=== PATIENT | female | born 1950 ===

== ENCOUNTER 2021-03-30 11:26 | Inpatient (IN) | payer MEDICARE ==
[2021-03-30] MEDS ORDERED: hydrALAZINE HCL 20 MG/ML 1 ML VIAL IVP STA (11:49)
[2021-03-30] MEDS ORDERED: ONDANSETRON 4 MG/2 ML VIAL IVP STA (11:49)
[2021-03-30] MEDS ORDERED: HYDROmorphone 0.5 MG/0.5 ML SYRINGE IVP STA (11:49)
--- NOTE | 2021-03-30 11:52 | ED ---
General Adult HPI - General Chief complaint: Back Pain/Injury Stated complaint: abd & back pain Time Seen by Provider: 03/30/21 11:30 Source: patient, historical interpreter, RN notes reviewed, old records reviewed Mode of arrival: ambulatory Limitations: language barrier - History of Present Illness Initial comments: This is a 71-year-old female who does not speaking verses son is interpreting. Patient is brought in today because she started having severe back pain and severe abdominal pain early this morning. Son states it's gotten progressively worse. Patient is very nauseated has vomited. Patient states it was a little back pain yesterday but nothing compared to today's back pain. Patient denies chest pain or palpitation. Patient denies shortness of breath or difficulty breathing. Patient denies any headache patient denies numbness weakness. Patient states she has a history of a little bit of high blood pressure. Patient denies any diabetes or heart disease. Patient denies any injury or trauma. Patient denies any recent fever chills. - Related Data Home Medications Medication Instructions Recorded Confirmed Famotidine [Pepcid] 20 mg PO DAILY 03/30/21 03/30/21 Fluticasone Nasal [place] [Flonase 1 spray EA NOSTRIL DAILY 03/30/21 03/30/21 Nasal [place]] Montelukast [Singulair] 10 mg PO HS 03/30/21 03/30/21 Ondansetron [Zofran] 4 mg PO Q12HR PRN 03/30/21 03/30/21 methylPREDNISolone [Medrol Dose See Taper PO DAILY 03/30/21 03/30/21 Pack] Allergies Allergy/AdvReac Type Severity Reaction Status Date / Time No Known Allergies Allergy Verified 03/30/21 13:21 Review of Systems ROS Statement: Those systems with pertinent positive or pertinent negative responses have been documented in the HPI. ROS Other: All systems not noted in ROS Statement are negative. Past Medical History Past Medical History: No Reported History History of Any Multi-Drug Resistant Organisms: None Reported Additional Past Surgical History / Comment(s): eye surgery Past Psychological History: No Psychological Hx Reported Smoking Status: Never smoker Past Alcohol Use History: None Reported Past Drug Use History: None Reported General Exam - General Exam Comments Initial Comments: GENERAL: Patient is well-developed and well-nourished. Patient is nontoxic and well- hydrated and is in moderate distress. ENT: Neck is soft and supple. No significant lymphadenopathy is noted. Oropharynx is clear. Moist mucous membranes. Neck has full range of motion without eliciting any pain. EYES: The sclera were anicteric and conjunctiva were pink and moist. Extraocular movements were intact and pupils were equal round and reactive to light. E yelids were unremarkable. PULMONARY: Unlabored respirations. Good breath sounds bilaterally. No audible rales rhonchi or wheezing was noted. CARDIOVASCULAR: There is a regular rate and rhythm without any murmurs gallops or rubs. ABDOMEN: Diffuse tenderness no point tenderness no rebound or guarding SKIN: Skin is clear with no lesions or rashes and otherwise unremarkable. NEUROLOGIC: Patient is alert and oriented x3. Cranial nerves II through XII are grossly intact. Motor and sensory are also intact. Normal speech, volume and content. Symmetrical smile. MUSCULOSKELETAL: Normal extremities with adequate strength and full range of motion. LYMPHATICS: No significant lymphadenopathy is noted PSYCHIATRIC: Normal psychiatric evaluation. Limitations: language barrier Course Vital Signs 03/30/21 03/30/21 03/30/21 11:27 11:51 12:12 Temperature 97.8 F Pulse Rate 71 74 74 Respiratory 18 18 18 Rate Blood Pressure 196/129 204/113 168/90 O2 Sat by Pulse 97 97 97 Oximetry 03/30/21 12:43 Temperature Pulse Rate 78 Respiratory 18 Rate Blood Pressure 148/68 O2 Sat by Pulse 97 Oximetry Medical Decision Making - Medical Decision Making EKG shows normal sinus rhythm at 70 bpm [place] interval 170 QRS is 82 QT interval 42 QTC is 434. Patient's EKG shows no ST segment elevation or depression. CT of the abdomen pelvis show no acute abnormality. Patient's blood pressure was extremely elevated when she came in and gave her 20 of hydralazine about it down nicely. I went back into reevaluate the patient after she had 0.5 of Dilaudid she was feeling much better but still a little nauseated still slight abdominal and slight back pain. I spoke with Dr. Pimentel he agreed to admit the patient admitted the patient wrote admitting orders. I consult to Dr. Jaime - Lab Data Result diagrams: 03/30/21 11:51 03/30/21 12:30 Lab Results 03/30/21 03/30/21 03/30/21 Range/Units 11:51 11:51 11:51 WBC 17.6 H (3.8-10.6) k/uL RBC 4.96 (3.80-5.40) m/uL Hgb 15.3 (11.4-16.0) gm/dL Hct 43.6 (34.0-46.0) % MCV 87.9 (80.0-100.0) fL MCH 30.9 (25.0-35.0) pg MCHC 35.2 (31.0-37.0) g/dL RDW 12.8 (11.5-15.5) % Plt Count 245 (150-450) k/uL MPV 9.6 Neutrophils % 73 % Lymphocytes % 20 % Monocytes % 5 % Eosinophils % 1 % Basophils % 0 % Neutrophils # 12.9 H (1.3-7.7) k/uL Lymphocytes # 3.4 (1.0-4.8) k/uL Monocytes # 0.9 (0-1.0) k/uL Eosinophils # 0.1 (0-0.7) k/uL Basophils # 0.1 (0-0.2) k/uL PT 10.6 (9.0-12.0) sec INR 1.0 (<1.2) APTT 22.4 (22.0-30.0) sec Sodium (137-145) mmol/L Potassium (3.5-5.1) mmol/L Chloride (98-107) mmol/L Carbon Dioxide (22-30) mmol/L Anion Gap mmol/L BUN (7-17) mg/dL Creatinine (0.52-1.04) mg/dL Est GFR (CKD-EPI)AfAm (>60 ml/min/1.73 sqM) Est GFR (CKD-EPI)NonAf (>60 ml/min/1.73 sqM) Glucose (74-99) mg/dL Lactic Ac Sepsis Rflx Plasma Lactic Acid Juan Antonio (0.7-2.0) mmol/L Calcium (8.4-10.2) mg/dL Total Bilirubin (0.2-1.3) mg/dL AST (14-36) U/L ALT (4-34) U/L Alkaline Phosphatase (38-126) U/L Troponin I (0.000-0.034) ng/mL Total Protein (6.3-8.2) g/dL Albumin (3.5-5.0) g/dL Amylase (30-110) U/L Lipase (23-300) U/L Urine Color Light Yellow Urine Appearance Clear (Clear) Urine pH 8.0 (5.0-8.0) Ur Specific [place] 1.050 H (1.001-1.035) Urine Protein Negative (Negative) Urine Glucose (UA) Negative (Negative) Urine Ketones Negative (Negative) Urine Blood Negative (Negative) Urine Nitrite Negative (Negative) Urine Bilirubin Negative (Negative) Urine Urobilinogen <2.0 (<2.0) mg/dL Ur Leukocyte Esterase Small H (Negative) Urine RBC 3 (0-5) /hpf Ur Squamous Epith Cells <1 (0-4) /hpf Urine Bacteria Rare H (None) /hpf 03/30/21 03/30/21 03/30/21 Range/Units 11:51 12:21 12:30 WBC (3.8-10.6) k/uL RBC (3.80-5.40) m/uL Hgb (11.4-16.0) gm/dL Hct (34.0-46.0) % MCV (80.0-100.0) fL MCH (25.0-35.0) pg MCHC (31.0-37.0) g/dL RDW (11.5-15.5) % Plt Count (150-450) k/uL MPV Neutrophils % % Lymphocytes % % Monocytes % % Eosinophils % % Basophils % % Neutrophils # (1.3-7.7) k/uL Lymphocytes # (1.0-4.8) k/uL Monocytes # (0-1.0) k/uL Eosinophils # (0-0.7) k/uL Basophils # (0-0.2) k/uL PT (9.0-12.0) sec INR (<1.2) APTT (22.0-30.0) sec Sodium 128 L (137-145) mmol/L Potassium 3.5 (3.5-5.1) mmol/L Chloride 95 L (98-107) mmol/L Carbon Dioxide 23 (22-30) mmol/L Anion Gap 10 mmol/L BUN 20 H (7-17) mg/dL Creatinine 0.53 (0.52-1.04) mg/dL Est GFR (CKD-EPI)AfAm >90 (>60 ml/min/1.73 sqM) Est GFR (CKD-EPI)NonAf >90 (>60 ml/min/1.73 sqM) Glucose 120 H (74-99) mg/dL Lactic Ac Sepsis Rflx Y Plasma Lactic Acid Juan [place] 2.5 H* (0.7-2.0) mmol/L Calcium 8.5 (8.4-10.2) mg/dL Total Bilirubin 0.8 (0.2-1.3) mg/dL AST 29 (14-36) U/L ALT 28 (4-34) U/L Alkaline Phosphatase 75 (38-126) U/L Troponin I (0.000-0.034) ng/mL Total Protein 6.3 (6.3-8.2) g/dL Albumin 3.4 L (3.5-5.0) g/dL Amylase 37 (30-110) U/L Lipase 47 (23-300) U/L Urine Color Urine Appearance (Clear) Urine pH (5.0-8.0) Ur Specific [place] (1.001-1.035) Urine Protein (Negative) Urine Glucose (UA) (Negative) Urine Ketones (Negative) Urine Blood (Negative) Urine Nitrite (Negative) Urine Bilirubin (Negative) Urine Urobilinogen (<2.0) mg/dL Ur Leukocyte Esterase (Negative) Urine RBC (0-5) /hpf Ur Squamous Epith Cells (0-4) /hpf Urine Bacteria (None) /hpf 03/30/21 Range/Units 12:30 WBC (3.8-10.6) k/uL RBC (3.80-5.40) m/uL Hgb (11.4-16.0) gm/dL Hct (34.0-46.0) % MCV (80.0-100.0) fL MCH (25.0-35.0) pg MCHC (31.0-37.0) g/dL RDW (11.5-15.5) % Plt Count (150-450) k/uL MPV Neutrophils % % Lymphocytes % % Monocytes % % Eosinophils % % Basophils % % Neutrophils # (1.3-7.7) k/uL Lymphocytes # (1.0-4.8) k/uL Monocytes # (0-1.0) k/uL Eosinophils # (0-0.7) k/uL Basophils # (0-0.2) k/uL PT (9.0-12.0) sec INR (<1.2) APTT (22.0-30.0) sec Sodium (137-145) mmol/L Potassium (3.5-5.1) mmol/L Chloride (98-107) mmol/L Carbon Dioxide (22-30) mmol/L Anion Gap mmol/L BUN (7-17) mg/dL Creatinine (0.52-1.04) mg/dL Est GFR (CKD-EPI)AfAm (>60 ml/min/1.73 sqM) Est GFR (CKD-EPI)NonAf (>60 ml/min/1.73 sqM) Glucose (74-99) mg/dL Lactic Ac Sepsis Rflx Plasma Lactic Acid Juan [place] (0.7-2.0) mmol/L Calcium (8.4-10.2) mg/dL Total Bilirubin (0.2-1.3) mg/dL AST (14-36) U/L ALT (4-34) U/L Alkaline Phosphatase (38-126) U/L Troponin I <0.012 (0.000-0.034) ng/mL Total Protein (6.3-8.2) g/dL Albumin (3.5-5.0) g/dL Amylase (30-110) U/L Lipase (23-300) U/L Urine Color Urine Appearance (Clear) Urine pH (5.0-8.0) Ur Specific [place] (1.001-1.035) Urine Protein (Negative) Urine Glucose (UA) (Negative) Urine Ketones (Negative) Urine Blood (Negative) Urine Nitrite (Negative) Urine Bilirubin (Negative) Urine Urobilinogen (<2.0) mg/dL Ur Leukocyte Esterase (Negative) Urine RBC (0-5) /hpf Ur Squamous Epith Cells (0-4) /hpf Urine Bacteria (None) /hpf Disposition Clinical Impression: Hypertensive urgency, Abdominal pain, Back pain Disposition: ADMITTED IP TO THIS HOSP Referrals: Eleazar Huynh MD [Primary Care Provider] - 1-2 days Time of Disposition: 14:38
[2021-03-30 11:59] LABS: Basophils # (A) 0.1 k/uL (0-0.2); Basophils % (A) 0 %; Eosinophils # (A) 0.1 k/uL (0-0.7); Eosinophils % (A) 1 %; HCT 43.6 % (34.0-46.0); HGB 15.3 gm/dL (11.4-16.0); Lymphocytes # (A) 3.4 k/uL (1.0-4.8); Lymphocytes % (A) 20 %; MCH 30.9 pg (25.0-35.0); MCHC 35.2 g/dL (31.0-37.0); MCV 87.9 fL (80.0-100.0); Mean Platelet Volume 9.6; Monocytes # (A) 0.9 k/uL (0-1.0); Monocytes % (A) 5 %; Neutrophils # (A) 12.9 k/uL (1.3-7.7); Neutrophils % (A) 73 %; Platelet Count 245 k/uL (150-450); RBC 4.96 m/uL (3.80-5.40); RDW 12.8 % (11.5-15.5); WBC 17.6 k/uL (3.8-10.6)
[2021-03-30 12:55] LABS: ALT 28 U/L (4-34); AST 29 U/L (14-36); African American GFR (CKD) >90 (>60 ml/min/1.73 sqM); Albumin 3.4 g/dL (3.5-5.0); Alkaline Phosphatase 75 U/L (38-126); Amylase 37 U/L (30-110); Anion Gap 10 mmol/L; Blood Urea Nitrogen 20 mg/dL (7-17); Calcium 8.5 mg/dL (8.4-10.2); Carbon Dioxide 23 mmol/L (22-30); Chloride 95 mmol/L (98-107); Glucose 120 mg/dL (74-99); Lipase 47 U/L (23-300); Non-African American GFR(CKD) >90 (>60 ml/min/1.73 sqM); Potassium 3.5 mmol/L (3.5-5.1); Sodium 128 mmol/L (137-145); Total Bilirubin 0.8 mg/dL (0.2-1.3); Total Protein 6.3 g/dL (6.3-8.2)
--- NOTE | 2021-03-30 12:57 | CT ---
EXAMINATION TYPE: CT angio abdomen pelvis DATE OF EXAM: 03/30/2021 COMPARISON: None INDICATION: generalized abdominal pain, DLP: 1657.4 mGycm, Automated exposure control for dose reduction was used. CONTRAST: 100 mL of Isovue 370. Study performed without Oral Contrast TECHNIQUE: Axial images were obtained from above the diaphragm to the pubic rami in the axial plane a t 5 mm thick sections. Reconstructed images are reviewed on the computer in the coronal plane. FINDINGS: Limited CT sections are obtained the lung bases. The lung bases are clear. Small hiatal hernia is p resent. CT ABDOMEN: Liver: There is moderate fatty infiltration of liver. No discrete masses or cysts are evident. Spleen: Normal Pancreas: Normal Adrenal glands: The adrenal glands are normal. Gallbladder: Distended Kidneys: No masses are evident. No hydronephrosis is present. No cysts are present. Delayed images were obtained through the kidneys, which remain unremarkable. Aorta: Normal no aneurysmal dilatation is evident. No dissection is evident. Iliac vessels are patent . Common femoral proximal superficial and profunda femoris vessels are patent. Inferior vena cava: Normal. CT PELVIS: Loops of bowel within the abdomen and pelvis are normal. This study is performed without oral con trast limiting evaluation. Appendix: Not identified. No dilated tubular structures or inflammatory changes evident Urinary bladder: Normal. Genitourinary structures: Uterus is not identified. There may be 1.1 cm cyst on the right lateral res idual, series 601 image 90 Osseous structures: No suspicious lytic or sclerotic lesions. IMPRESSIONS: 1. There is a hypodense 1.1 cm structure in the right adnexal region may be a cyst on the residual o vary. Consider follow-up with ultrasound. 2. Abdominal aorta appears normal without aneurysmal dilatation or dissection.
[2021-03-30 13:12] LABS: Partial Thromboplastin Time 22.4 sec (22.0-30.0); Prothrombin Time 10.6 sec (9.0-12.0)
[2021-03-30 13:48] LABS: Appearance,Urine Clear (Clear); Bacteria,Urine Rare /hpf; Bilirubin,Urine Negative (Negative); Blood,Urine Negative (Negative); Color,Urine Light Yellow; Glucose,Urine (UA) Negative (Negative); Ketones,Urine Negative (Negative); Leukocyte Esterase,Urine Small (Negative); Nitrite,Urine Negative (Negative); Protein,Urine Negative (Negative); RBC,Urine 3 /hpf (0-5); Squamous Epithelial Cell,Urine <1 /hpf (0-4); Urobilinogen,Urine <2.0 mg/dL (<2.0)
--- NOTE | 2021-03-30 14:23 | XR ---
EXAMINATION TYPE: XR chest 2V DATE OF EXAM: 03/30/2021 COMPARISON: NONE HISTORY: LIBERTAD and vomiting. TECHNIQUE: Frontal and lateral views of the chest are obtained. FINDINGS: There is no suspicious focal air space opacity, pleural effusion, or pneumothorax seen. T he cardiac silhouette size is within normal limits. The osseous structures are demineralized. IMPRESSION: No acute process.
[2021-03-30] MEDS ORDERED: SODIUM CHLORIDE 0.9% 1,000 ML IV ONE (14:39)
[2021-03-30] MEDS: ONDANSETRON 4 MG/2 ML VIAL IVP PRN ×2 (14:55→23:16)
[2021-03-30] MEDS: HYDROmorphone 0.5 MG/0.5 ML SYRINGE IVP PRN (17:18)
[2021-03-30] MEDS: PANTOPRAZOLE 40 MG/10 ML VIAL IVP SCH (17:18)
--- NOTE | 2021-03-30 17:25 | P.HPIM ---
History of Present Illness H&P Date: 03/30/21 This is a 71-year-old Welsh-speaking female that presented to the emergency room with complaint of severe back pain, abdominal pain, and nausea/vomiting. Her son was at bedside acting as glove tagger. Apparently patient symptoms started 2 days ago and is being getting progressively worse. Today she had severe sharp pain in the right flank area extending to the right side and epigastric area. She described the pain as 10 out of 10 in severity. Patient was very nauseated and vomited twice. Patient denies any trauma or fall. No similar history in the past. She denies alcohol use. No urinary symptoms otherwise. Patient had a normal bowel movement yesterday. She denies fevers or chills. Patient was evaluated in the ER and CT angiogram of the abdomen and pelvis showed no acute findings. Patient appears more comfortable at the time of my evaluation. She received IV Dilaudid. Workup in the ER was pretty much unremarkable. Noted her blood pressure was 200/110 on presentation. Patient denies any history of hypertension. She was told by her PCP that her blood pressure was borderline high during her last visit but no medication was prescribed. Patient was treated with IV hydralazine in the ER and her BP is significantly better right now. Review of Systems Review of system: 14 points review of systems were obtained and were negative except to what were mentioned in the HPI. Past Medical History Past Medical History: No Reported History History of Any Multi-Drug Resistant Organisms: None Reported Additional Past Surgical History / Comment(s): eye surgery Past Psychological History: No Psychological Hx Reported Smoking Status: Never smoker Past Alcohol Use History: None Reported Past Drug Use History: None Reported Medications and Allergies Home Medications Medication Instructions Recorded Confirmed Type Famotidine [Pepcid] 20 mg PO DAILY 03/30/21 03/30/21 History Fluticasone Nasal [place] [Flonase 1 spray EA NOSTRIL DAILY 03/30/21 03/30/21 History Nasal [place]] Montelukast [Singulair] 10 mg PO HS 03/30/21 03/30/21 History Ondansetron [Zofran] 4 mg PO Q12HR PRN 03/30/21 03/30/21 History methylPREDNISolone [Medrol Dose See Taper PO DAILY 03/30/21 03/30/21 History Pack] Allergies Allergy/AdvReac Type Severity Reaction Status Date / Time No Known Allergies Allergy Verified 03/30/21 13:21 Physical Exam Vitals: Vital Signs Temp Pulse Resp BP Pulse Ox 03/30/21 17:00 97 F L 85 16 148/83 96 03/30/21 12:43 78 18 148/68 97 03/30/21 12:12 74 18 168/90 97 03/30/21 11:51 74 18 204/113 97 03/30/21 11:27 97.8 F 71 18 196/129 97 Intake and Output 03/30/21 03/30/21 03/30/21 06:59 14:59 22:59 Other: Weight 77.111 kg General: The patient is awake and alert, in no distress Eye: there is normal conjunctiva bilaterally. Neck: The neck is supple, there is no JVD. Cardiovascular: Normal S1-S2, no S3-S4, no murmurs. Respiratory: Lungs clear to auscultation bilaterally Gastrointestinal: Abdomen is soft, nontender Musculoskeletal: There is no pedal edema. Neurological:. Speech is normal. Skin: Skin is warm and dry Results CBC & Chem 7: 03/30/21 11:51 03/30/21 12:30 Labs: Abnormal Lab Results - Last 24 Hours (Table) 03/30/21 03/30/21 03/30/21 Range/Units 11:51 11:51 11:51 WBC 17.6 H (3.8-10.6) k/uL Neutrophils # 12.9 H (1.3-7.7) k/uL Sodium (137-145) mmol/L Chloride (98-107) mmol/L BUN (7-17) mg/dL Glucose (74-99) mg/dL Plasma Lactic Acid Juan Antonio 2.5 H* (0.7-2.0) mmol/L Albumin (3.5-5.0) g/dL Ur Specific [place] 1.050 H (1.001-1.035) Ur Leukocyte Esterase Small H (Negative) Urine Bacteria Rare H (None) /hpf 03/30/21 Range/Units 12:30 WBC (3.8-10.6) k/uL Neutrophils # (1.3-7.7) k/uL Sodium 128 L (137-145) mmol/L Chloride 95 L (98-107) mmol/L BUN 20 H (7-17) mg/dL Glucose 120 H (74-99) mg/dL Plasma Lactic Acid Juan Antonio (0.7-2.0) mmol/L Albumin 3.4 L (3.5-5.0) g/dL Ur Specific [place] (1.001-1.035) Ur Leukocyte Esterase (Negative) Urine Bacteria (None) /hpf Assessment and Plan Assessment: 1. Hypertensive urgency 2. Severe back pain, now improved 3. Severe abdominal/epigastric pain on presentation now resolved 4. Hypovolemic hyponatremia I reviewed her medication list and lab work results. Continue gentle IV fluid hydration with normal saline at [address] angiogram of the abdomen and pelvis with no acute findings. I will obtain lumbar spine x-ray. Continue symptomatic management. IV Dilaudid and IV Zofran as needed. Start Protonix 40 mg IV daily. Start clear liquids and advance as tolerated. Gen. surgery consulted by ER. Repeat lab work in the morning.
[2021-03-30] MEDS: MONTELUKAST 10 MG TAB PO SCH (22:02)
--- NOTE | 2021-03-30 22:48 | XR ---
EXAMINATION TYPE: XR lumbar spine 2 or 3V DATE OF EXAM: 03/30/2021 COMPARISON: NONE HISTORY: Back pain TECHNIQUE: 3 views FINDINGS: Lumbar vertebra have normal alignment. Posterior elements are intact. There is some spurrin g of the endplates. Sacroiliac joints are intact. IMPRESSION: Mild degenerative disc changes in the lumbar spine. No fracture.
[2021-03-30] MEDS: ACETAMINOPHEN TAB 325 MG TAB PO PRN (23:22)
[2021-03-31] MEDS: ACETAMINOPHEN TAB 325 MG TAB PO PRN ×3 (05:04→20:43)
[2021-03-31 08:35] LABS: Basophils % (A) 0 %; Eosinophils # (A) 0.1 k/uL (0-0.7); Eosinophils % (A) 1 %; HCT 43.2 % (34.0-46.0); HGB 15.1 gm/dL (11.4-16.0); Hyperchromasia Slight; Lymphocytes # (A) 2.2 k/uL (1.0-4.8); Lymphocytes % (A) 17 %; MCH 30.2 pg (25.0-35.0); MCV 86.2 fL (80.0-100.0); Mean Platelet Volume 8.7; Monocytes # (A) 0.8 k/uL (0-1.0); Monocytes % (A) 6 %; Neutrophils # (A) 9.7 k/uL (1.3-7.7); Neutrophils % (A) 74 %; Platelet Count 246 k/uL (150-450); RDW 13.4 % (11.5-15.5); WBC 13.1 k/uL (3.8-10.6)
[2021-03-31 09:11] LABS: African American GFR (CKD) >90 (>60 ml/min/1.73 sqM); Anion Gap 11 mmol/L; Blood Urea Nitrogen 12 mg/dL (7-17); Calcium 9.3 mg/dL (8.4-10.2); Carbon Dioxide 21 mmol/L (22-30); Chloride 102 mmol/L (98-107); Glucose 118 mg/dL (74-99); Non-African American GFR(CKD) >90 (>60 ml/min/1.73 sqM); Sodium 134 mmol/L (137-145)
[2021-03-31] MEDS: amLODIPine 5 MG TAB PO SCH (09:46)
[2021-03-31] MEDS: FLUTICASONE 50MCG/SPRAY NASAL 16GM EA NOSTRIL SCH (09:46)
[2021-03-31] MEDS: PANTOPRAZOLE 40 MG/10 ML VIAL IVP SCH (09:47)
[2021-03-31] MEDS: PIPERACILLIN-TAZOBACTAM 3.375 GM in SODIUM CHLORIDE 0.9% 100 ML IVPB SCH ×2 (12:57→20:44)
--- NOTE | 2021-03-31 15:26 | P.GSCN ---
History of Present Illness Consult date: 03/31/21 History of present illness: CHIEF COMPLAINT: Abdominal pain HISTORY OF PRESENT ILLNESS: This is a 71-year-old female who is [place]- speaking. Her son was at bedside to help with translation. Patient's presented to the hospital with complaints of 2 day history of epigastric abdominal pain and upper back pain. She also reports some minimal right upper quadrant pain. Patient has had decrease in appetite. She has been having vomiting after eating. Patient has CTA of the abdomen which did show a distended gallbladder. She did have elevated white count on admission as well. Denies any fevers chills or sweats. Denies any change in bowel movements. Patient denies any history of NSAID use or peptic ulcer disease. PAST MEDICAL HISTORY: Sinus ALLERGIES with recent antibiotics and prednisone taper PAST SURGICAL HISTORY: No prior surgical history MEDICATIONS: See list. ALLERGIES: See list. SOCIAL HISTORY: No illicit drug use. REVIEW OF SYSTEMS: CONSTITUTIONAL: Denies fever or chills. HEENT: Denies blurred vision, vision changes, or eye pain. Denies hemoptysis CARDIOVASCULAR: Denies chest pain or pressure. RESPIRATORY: No shortness of breath. GASTROINTESTINAL: See HPI for pertinent findings HEMATOLOGIC: Denies bleeding disorders. GENITOURINARY: Denies any blood in urine or increased urinary frequency. SKIN: Denies pruitis. Denies rash. PHYSICAL EXAM: VITAL SIGNS: Reviewed GENERAL: Well-developed in no acute distress. HEENT: No sclera icterus. Extraocular movements grossly intact. Moist buccal mucosa. Head is atraumatic, normocephalic. No nasal drainage. ABDOMEN: Soft. Nondistended. Epigastric tenderness NEUROLOGIC: Alert and oriented. Cranial nerves II through XII grossly intact. LABORATORY DATA: WBC 17.6 down to 13.1 hemoglobin 15.1 platelets 246 sodium 134 potassium 4.0 BUN 12 creatinine 0.53 LFTs normal lipase normal IMAGING: CTA of abdomen there is a hypodense 1.1 cm structure in the right adnexal region may be a cyst on residual ovary. Abdominal aorta appears normal without aneurysmal dilation or dissection. Gallbladder is distended X-ray lumbar spine mild degenerative disc changes and lumbar spine. no fracture ASSESSMENT: 1. Epigastric abdominal pain with vomiting 2. Distended gallbladder noted on CAT scan 3. Leukocytosis PLAN: -Patient scheduled for EGD tomorrow, 04/01/[address] joe -Keep patient nothing by mouth after midnight -Start patient empirically on antibiotics -Check HIDA scan Thank you for this consultation Physician Pewter Caster note has been reviewed by physician. Signing provider agrees with the documented findings, assessment, and plan of care. Past Medical History Past Medical History: No Reported History History of Any Multi-Drug Resistant Organisms: None Reported Additional Past Surgical History / Comment(s): eye surgery, ovaries removed Past Psychological History: No Psychological Hx Reported Smoking Status: Never smoker Past Alcohol Use History: None Reported Past Drug Use History: None Reported Medications and Allergies Home Medications Medication Instructions Recorded Confirmed Type Famotidine [Pepcid] 20 mg PO DAILY 03/30/21 03/30/21 History Fluticasone Nasal [place] [Flonase 1 spray EA NOSTRIL DAILY 03/30/21 03/30/21 History Nasal [place]] Montelukast [Singulair] 10 mg PO HS 03/30/21 03/30/21 History Ondansetron [Zofran] 4 mg PO Q12HR PRN 03/30/21 03/30/21 History methylPREDNISolone [Medrol Dose See Taper PO DAILY 03/30/21 03/30/21 History Pack] Allergies Allergy/AdvReac Type Severity Reaction Status Date / Time No Known Allergies Allergy Verified 03/30/21 13:21 Surgical - Exam Vital Signs Temp Pulse Resp BP Pulse Ox 97.8 F 71 18 196/129 97 03/30/21 11:27 03/30/21 11:27 03/30/21 11:27 03/30/21 11:27 03/30/21 11:27 Results - Labs 03/31/21 07:52 03/31/21 07:43 Abnormal Lab Results - Last 24 Hours (Table) 03/30/21 03/30/21 03/31/21 Range/Units 17:21 20:27 07:43 WBC (3.8-10.6) k/uL Neutrophils # (1.3-7.7) k/uL Sodium 134 L (137-145) mmol/L Carbon Dioxide 21 L (22-30) mmol/L Glucose 118 H (74-99) mg/dL Plasma Lactic Acid [place] 2.1 H* 2.6 H* (0.7-2.0) mmol/L 03/31/21 Range/Units 07:52 WBC 13.1 H (3.8-10.6) k/uL Neutrophils # 9.7 H (1.3-7.7) k/uL Sodium (137-145) mmol/L Carbon Dioxide (22-30) mmol/L Glucose (74-99) mg/dL Plasma Lactic Acid [place] (0.7-2.0) mmol/L Diabetes panel 03/31/21 Range/Units 07:43 Sodium 134 L (137-145) mmol/L Potassium 4.0 (3.5-5.1) mmol/L Chloride 102 (98-107) mmol/L Carbon Dioxide 21 L (22-30) mmol/L BUN 12 (7-17) mg/dL Creatinine 0.53 (0.52-1.04) mg/dL Glucose 118 H (74-99) mg/dL Calcium 9.3 (8.4-10.2) mg/dL Calcium panel 03/31/21 Range/Units 07:43 Calcium 9.3 (8.4-10.2) mg/dL Pituitary panel 03/31/21 Range/Units 07:43 Sodium 134 L (137-145) mmol/L Potassium 4.0 (3.5-5.1) mmol/L Chloride 102 (98-107) mmol/L Carbon Dioxide 21 L (22-30) mmol/L BUN 12 (7-17) mg/dL Creatinine 0.53 (0.52-1.04) mg/dL Glucose 118 H (74-99) mg/dL Calcium 9.3 (8.4-10.2) mg/dL Adrenal panel 03/31/21 Range/Units 07:43 Sodium 134 L (137-145) mmol/L Potassium 4.0 (3.5-5.1) mmol/L Chloride 102 (98-107) mmol/L Carbon Dioxide 21 L (22-30) mmol/L BUN 12 (7-17) mg/dL Creatinine 0.53 (0.52-1.04) mg/dL Glucose 118 H (74-99) mg/dL Calcium 9.3 (8.4-10.2) mg/dL
--- NOTE | 2021-03-31 15:36 | P.PN ---
Subjective Patient was seen and evaluated by me this morning. She is feeling better compared to yesterday. No abdominal or epigastric pain this morning. She still complaining of bilateral flank pain. No nausea or vomiting. Objective - Vital Signs Vital signs: Vital Signs Temp 96.8 F L 03/31/21 13:00 Pulse 80 03/31/21 13:00 Resp 16 03/31/21 13:00 BP 132/72 03/31/21 13:00 Pulse Ox 94 L 03/31/21 13:00 Intake & Output 03/30/21 03/31/21 03/31/21 18:59 06:59 18:59 Intake Total 500 Balance 500 Weight 77.111 kg Intake: Oral 500 Other: # Voids 2 - Exam General: The patient is awake and alert, in no distress Eye: there is normal conjunctiva bilaterally. Neck: The neck is supple, there is no JVD. Cardiovascular: Normal S1-S2, no S3-S4, no murmurs. Respiratory: Lungs clear to auscultation bilaterally Gastrointestinal: Abdomen is soft, nontender Musculoskeletal: There is no pedal edema. Neurological:. Speech is normal. Skin: Skin is warm and dry - Labs CBC & Chem 7: 03/31/21 07:52 03/31/21 07:43 Labs: Abnormal Lab Results - Last 24 Hours (Table) 03/30/21 03/30/21 03/31/21 Range/Units 17:21 20:27 07:43 WBC (3.8-10.6) k/uL Neutrophils # (1.3-7.7) k/uL Sodium 134 L (137-145) mmol/L Carbon Dioxide 21 L (22-30) mmol/L Glucose 118 H (74-99) mg/dL Plasma Lactic Acid Juan Antonio 2.1 H* 2.6 H* (0.7-2.0) mmol/L 03/31/21 Range/Units 07:52 WBC 13.1 H (3.8-10.6) k/uL Neutrophils # 9.7 H (1.3-7.7) k/uL Sodium (137-145) mmol/L Carbon Dioxide (22-30) mmol/L Glucose (74-99) mg/dL Plasma Lactic Acid Juan Antonio (0.7-2.0) mmol/L Assessment and Plan Assessment: 1. Hypertensive urgency, blood pressure improved significantly. Patient started on Norvasc 5 mg daily 2. Severe back pain, now improved. Lumbar x-ray with no acute finding 3. Severe abdominal/epigastric pain on presentation now resolved. Seen and evaluated by general surgery. HIDA scan ordered. 4. Hypovolemic hyponatremia, improved with IV fluid I reviewed her medication list and lab work results. CT angiogram of the abdomen and pelvis with no acute findings. Continue symptomatic management. IV Dilaudid and IV Zofran as needed. Repeat lab work in the morning. Awaiting HIDA scan results.
--- NOTE | 2021-03-31 16:02 | NM ---
EXAMINATION TYPE: NM hepatobiliary w CCK DATE OF EXAM: 03/31/2021 COMPARISON: NONE INDICATION: Abdominal pain TECHNIQUE: After the intravenous administration of 3.9 mCi Tc 99m Mebrofenin hepatobiliary scintigrap hy is performed. Images were obtained immediately post injection. FINDINGS: There is prompt uptake and excretion of radiotracer by the liver. Extrahepatic ducts are identified at 4 minutes. The gallbladder is visualized within 24 minutes. Small bowel activity is noted within 8 minutes. At one hour CCK was administered, patient was injected with 1.5 mcg of Kinevac, and gallbladder eject ion fraction is calculated at 4 %, which is abnormally low. (Normal >35% and <80%.). IMPRESSION: 1. Severe hypokinesia of the gallbladder. Consider cholecystitis. 2. No cystic duct or common bile duct obstruction evident.
[2021-03-31] MEDS: MONTELUKAST 10 MG TAB PO SCH (20:43)
[2021-04-01] MEDS: PIPERACILLIN-TAZOBACTAM 3.375 GM in SODIUM CHLORIDE 0.9% 100 ML IVPB SCH ×3 (03:38→19:24)
[2021-04-01] MEDS: ACETAMINOPHEN TAB 325 MG TAB PO PRN ×3 (03:42→19:25)
[2021-04-01 06:27] LABS: Basophils # (A) 0.1 k/uL (0-0.2); Basophils % (A) 1 %; Eosinophils # (A) 0.1 k/uL (0-0.7); Eosinophils % (A) 1 %; HCT 44.5 % (34.0-46.0); HGB 15.1 gm/dL (11.4-16.0); Lymphocytes # (A) 2.6 k/uL (1.0-4.8); Lymphocytes % (A) 19 %; MCH 30.1 pg (25.0-35.0); MCV 88.7 fL (80.0-100.0); Monocytes # (A) 0.7 k/uL (0-1.0); Monocytes % (A) 5 %; Neutrophils # (A) 9.6 k/uL (1.3-7.7); Neutrophils % (A) 70 %; Platelet Count 221 k/uL (150-450); RBC 5.02 m/uL (3.80-5.40); WBC 13.6 k/uL (3.8-10.6)
[2021-04-01 06:44] LABS: African American GFR (CKD) >90 (>60 ml/min/1.73 sqM); Anion Gap 7 mmol/L; Blood Urea Nitrogen 12 mg/dL (7-17); Calcium 9.1 mg/dL (8.4-10.2); Carbon Dioxide 24 mmol/L (22-30); Chloride 101 mmol/L (98-107); Glucose 111 mg/dL (74-99); Non-African American GFR(CKD) >90 (>60 ml/min/1.73 sqM); Sodium 132 mmol/L (137-145)
[2021-04-01 07:45] LABS: Potassium 3.7 mmol/L (3.5-5.1)
[2021-04-01] MEDS: PANTOPRAZOLE 40 MG TABLET PO SCH (10:18)
[2021-04-01] MEDS: FLUTICASONE 50MCG/SPRAY NASAL 16GM EA NOSTRIL SCH (10:18)
[2021-04-01] MEDS: amLODIPine 5 MG TAB PO SCH ×2 (10:18→20:07)
[2021-04-01] MEDS ORDERED: PROPOFOL 10 MG/ML 20 ML VIAL IV ONE (12:40)
[2021-04-01] MEDS ORDERED: LIDOCAINE 1% INJ 10MG/ML (20 ML MDV) ONE (12:40)
--- NOTE | 2021-04-01 13:40 | P.PN ---
Subjective Progress Note Date: 04/01/21 Patient was resting this morning. Her son at bedside acting as an commercial sewing instructor. No acute events overnight. Objective - Vital Signs Vital signs: Vital Signs Temp 97.9 F 04/01/21 08:03 Pulse 80 04/01/21 08:03 Resp 18 04/01/21 08:03 BP 128/80 04/01/21 08:03 Pulse Ox 96 04/01/21 08:03 Intake & Output 03/31/21 04/01/21 04/01/21 18:59 06:59 18:59 Intake Total 1000 740 Balance 1000 740 Intake: Intake, IV Titration 1000 Amount Piperacillin-Tazobactam 3 100 .375 gm In Sodium Chloride 0.9% 100 ml @ 25 mls/hr IVPB Q8H [facility] Rx#: [id number] Sodium Chloride 0.9% 1, 900 000 ml @ 75 mls/hr IV . [id number] Rx#:[id number] Oral 740 - Exam General: The patient is awake and alert, in no distress Eye: there is normal conjunctiva bilaterally. Neck: The neck is supple, there is no JVD. Cardiovascular: Normal S1-S2, no S3-S4, no murmurs. Respiratory: Lungs clear to auscultation bilaterally Gastrointestinal: Abdomen is soft, nontender Musculoskeletal: There is no pedal edema. Neurological:. Speech is normal. Skin: Skin is warm and dry - Labs CBC & Chem 7: 04/01/21 05:38 04/01/21 05:38 Labs: Abnormal Lab Results - Last 24 Hours (Table) 04/01/21 04/01/21 Range/Units 05:38 05:38 WBC 13.6 H (3.8-10.6) k/uL Neutrophils # 9.6 H (1.3-7.7) k/uL Sodium 132 L (137-145) mmol/L Creatinine 0.49 L (0.52-1.04) mg/dL Glucose 111 H (74-99) mg/dL Assessment and Plan Assessment: 1. Hypertensive urgency, blood pressure improved but still not well controlled. I would increase Norvasc dose to 5 mg twice daily. 2. Severe back pain, now improved. Lumbar x-ray with no acute finding 3. Severe abdominal/epigastric pain on presentation now resolved. Seen and evaluated by general surgery. HIDA scan abnormal concerning for acute cholecystitis. Patient is also scheduled for an EGD today by general surgery. 4. Hypovolemic hyponatremia, improved with IV fluid I reviewed her medication list and lab work results. CT angiogram of the abdomen and pelvis with no acute findings. Continue symptomatic management. IV Dilaudid and IV Zofran as needed. Patient was started on empiric antibiotic with Zosyn by general surgery Repeat lab work in the morning.
[2021-04-01] MEDS: MONTELUKAST 10 MG TAB PO SCH (20:07)
[2021-04-02] MEDS: ACETAMINOPHEN TAB 325 MG TAB PO PRN ×3 (02:46→15:51)
[2021-04-02] MEDS: PIPERACILLIN-TAZOBACTAM 3.375 GM in SODIUM CHLORIDE 0.9% 100 ML IVPB SCH ×3 (03:32→20:26)
[2021-04-02] MEDS: PANTOPRAZOLE 40 MG TABLET PO SCH (08:26)
[2021-04-02] MEDS: amLODIPine 5 MG TAB PO SCH ×2 (08:27→20:26)
[2021-04-02] MEDS: FLUTICASONE 50MCG/SPRAY NASAL 16GM EA NOSTRIL SCH (08:27)
[2021-04-02 10:01] LABS: Basophils # (A) 0.1 k/uL (0-0.2); Basophils % (A) 1 %; Eosinophils # (A) 0.3 k/uL (0-0.7); Eosinophils % (A) 2 %; HCT 43.3 % (34.0-46.0); Lymphocytes # (A) 3.1 k/uL (1.0-4.8); Lymphocytes % (A) 23 %; MCH 30.6 pg (25.0-35.0); MCHC 34.7 g/dL (31.0-37.0); MCV 88.1 fL (80.0-100.0); Mean Platelet Volume 8.6; Monocytes # (A) 0.6 k/uL (0-1.0); Monocytes % (A) 4 %; Neutrophils # (A) 9.1 k/uL (1.3-7.7); Neutrophils % (A) 67 %; Platelet Count 228 k/uL (150-450); RBC 4.91 m/uL (3.80-5.40); RDW 12.7 % (11.5-15.5); WBC 13.7 k/uL (3.8-10.6)
[2021-04-02 10:16] LABS: ALT 24 U/L (4-34); AST 29 U/L (14-36); African American GFR (CKD) >90 (>60 ml/min/1.73 sqM); Albumin 3.5 g/dL (3.5-5.0); Albumin/Globulin Ratio 1.1; Alkaline Phosphatase 74 U/L (38-126); Anion Gap 10 mmol/L; Blood Urea Nitrogen 13 mg/dL (7-17); Carbon Dioxide 22 mmol/L (22-30); Chloride 102 mmol/L (98-107); Globulin 3.3 g/dL; Glucose 138 mg/dL (74-99); Non-African American GFR(CKD) >90 (>60 ml/min/1.73 sqM); Potassium 3.2 mmol/L (3.5-5.1); Sodium 134 mmol/L (137-145); Total Bilirubin 1.1 mg/dL (0.2-1.3); Total Protein 6.8 g/dL (6.3-8.2)
[2021-04-02] MEDS ORDERED: POTASSIUM CHLORIDE 10 MEQ in WATER FOR INJECTION 1 100ML.BAG IVPB STA (10:30)
[2021-04-02] MEDS ORDERED: POTASSIUM CHLORIDE ER 20 MEQ TAB.ER PO STA (10:30)
--- NOTE | 2021-04-02 11:09 | P.PN ---
Progress Note - Text Progress Note Date: 04/02/21 Patient remains stable. Abdomen is soft. Chronic cholecystitis. Patient undergo laparoscopic ostectomy on Monday.
--- NOTE | 2021-04-02 14:18 | P.PN ---
Subjective Patient was seen and evaluated this morning. Her daughter at bedside acting as an track moving machine operator. Patient is still complaining of pain but today is mostly in the left flank. She is scheduled for laparoscopic cholecystectomy on Monday. No fevers or chills. White count did not improve yet. Objective - Vital Signs Vital signs: Vital Signs Temp 98.5 F 04/02/21 12:06 Pulse 65 04/02/21 12:06 Resp 18 04/02/21 12:06 BP 140/75 04/02/21 12:06 Pulse Ox 93 L 04/02/21 12:06 Intake & Output 04/01/21 04/02/21 04/02/21 18:59 06:59 18:59 Intake Total 100 800 Balance 100 800 Intake: Intake, IV Titration 100 200 Amount Piperacillin-Tazobactam 3 100 200 .375 gm In Sodium Chloride 0.9% 100 ml @ 25 mls/hr IVPB Q8H [facility] Rx#: [id number] Oral 600 Other: # Voids 2 - Exam General: The patient is awake and alert, in no distress Eye: there is normal conjunctiva bilaterally. Neck: The neck is supple, there is no JVD. Cardiovascular: Normal S1-S2, no S3-S4, no murmurs. Respiratory: Lungs clear to auscultation bilaterally Gastrointestinal: Abdomen is soft, nontender Musculoskeletal: There is no pedal edema. Neurological:. Speech is normal. Skin: Skin is warm and dry - Labs CBC & Chem 7: 04/02/21 09:40 04/02/21 09:40 Labs: Abnormal Lab Results - Last 24 Hours (Table) 04/02/21 04/02/21 Range/Units 09:40 09:40 WBC 13.7 H (3.8-10.6) k/uL Neutrophils # 9.1 H (1.3-7.7) k/uL Sodium 134 L (137-145) mmol/L Potassium 3.2 L (3.5-5.1) mmol/L Glucose 138 H (74-99) mg/dL Assessment and Plan Assessment: 1. Acute diverticulitis, with abnormal HIDA scan. Scheduled for cholecystectomy on Monday 2. Hypertensive urgency, blood pressure improved. Continue Norvasc 5 mg twice daily 3. Severe back pain, now improved. Lumbar x-ray with no acute finding 4. Severe abdominal/epigastric pain on presentation now resolved. Seen and evaluated by general surgery. Patient underwent EGD during this admission awaiting report. No acute findings per nursing staff verbal report 5. Hypovolemic hyponatremia, improved with IV fluid I reviewed her medication list and lab work results. CT angiogram of the abdomen and pelvis with no acute findings. Continue symptomatic management. IV Dilaudid and IV Zofran as needed. Patient was started on empiric antibiotic with Zosyn by general surgery day #3. We'll continue to monitor for leukocytosis in control Repeat lab work in the morning.
[2021-04-02] MEDS: MONTELUKAST 10 MG TAB PO SCH (20:26)
[2021-04-02] MEDS: HYDROmorphone 0.5 MG/0.5 ML SYRINGE IVP PRN (20:27)
[2021-04-02] MEDS: ONDANSETRON 4 MG/2 ML VIAL IVP PRN (20:27)
[2021-04-03] MEDS: PIPERACILLIN-TAZOBACTAM 3.375 GM in SODIUM CHLORIDE 0.9% 100 ML IVPB SCH ×3 (05:20→20:40)
[2021-04-03] MEDS: HYDROmorphone 0.5 MG/0.5 ML SYRINGE IVP PRN ×3 (05:20→22:06)
[2021-04-03] MEDS: PANTOPRAZOLE 40 MG TABLET PO SCH (06:46)
[2021-04-03 08:02] LABS: ALT 22 U/L (4-34); AST 27 U/L (14-36); African American GFR (CKD) >90 (>60 ml/min/1.73 sqM); Albumin 3.3 g/dL (3.5-5.0); Alkaline Phosphatase 80 U/L (38-126); Anion Gap 8 mmol/L; Blood Urea Nitrogen 19 mg/dL (7-17); Calcium 8.7 mg/dL (8.4-10.2); Carbon Dioxide 23 mmol/L (22-30); Chloride 106 mmol/L (98-107); Globulin 3.4 g/dL; Glucose 112 mg/dL (74-99); Magnesium 2.1 mg/dL (1.6-2.3); Non-African American GFR(CKD) >90 (>60 ml/min/1.73 sqM); Potassium 3.7 mmol/L (3.5-5.1); Sodium 137 mmol/L (137-145); Total Bilirubin 0.8 mg/dL (0.2-1.3); Total Protein 6.7 g/dL (6.3-8.2)
[2021-04-03 08:07] LABS: Basophils # (A) 0.1 k/uL (0-0.2); Basophils % (A) 0 %; Eosinophils # (A) 0.2 k/uL (0-0.7); Eosinophils % (A) 1 %; HGB 14.6 gm/dL (11.4-16.0); Lymphocytes # (A) 3.4 k/uL (1.0-4.8); Lymphocytes % (A) 23 %; MCH 30.1 pg (25.0-35.0); MCV 88.6 fL (80.0-100.0); Monocytes # (A) 0.6 k/uL (0-1.0); Monocytes % (A) 4 %; Neutrophils # (A) 9.9 k/uL (1.3-7.7); Neutrophils % (A) 68 %; Platelet Count 225 k/uL (150-450); RBC 4.86 m/uL (3.80-5.40); RDW 12.9 % (11.5-15.5); WBC 14.6 k/uL (3.8-10.6)
[2021-04-03] MEDS: amLODIPine 5 MG TAB PO SCH ×3 (09:25→22:10)
[2021-04-03] MEDS: FLUTICASONE 50MCG/SPRAY NASAL 16GM EA NOSTRIL SCH (09:26)
--- NOTE | 2021-04-03 11:11 | P.PN ---
Subjective Progress Note Date: 04/03/21 Principal diagnosis: Cholecystitis Patient resting comfortably. Was having pain earlier today in the upper abdomen that is improved. Complaining of some constipation. Last bowel movement Monday. No fevers. White blood cell count 14.6. Objective - Vital Signs Vital signs: Vital Signs Temp 98.6 F 04/03/21 04:52 Pulse 82 04/03/21 09:19 Resp 16 04/03/21 08:00 BP 153/69 04/03/21 09:19 Pulse Ox 97 04/03/21 04:52 Intake & Output 04/02/21 04/03/21 04/03/21 18:59 06:59 18:59 Intake Total 200 100 Balance 200 100 Intake: Intake, IV Titration 200 100 Amount Piperacillin-Tazobactam 3 100 100 .375 gm In Sodium Chloride 0.9% 100 ml @ 25 mls/hr IVPB Q8H [facility] Rx#: [id number] Potassium Chloride 10 meq 100 In Water For Injection 1 100ml.bag @ 100 mls/hr IVPB [facility] Rx#: [id number] Other: Voiding Method Toilet Toilet - Exam Abdomen: Soft, nontender, nondistended - Labs CBC & Chem 7: 04/03/21 07:09 04/03/21 07:09 Labs: Abnormal Lab Results - Last 24 Hours (Table) 04/03/21 04/03/21 Range/Units 07:09 07:09 WBC 14.6 H (3.8-10.6) k/uL Neutrophils # 9.9 H (1.3-7.7) k/uL BUN 19 H (7-17) mg/dL Glucose 112 H (74-99) mg/dL Albumin 3.3 L (3.5-5.0) g/dL Assessment and Plan (1) Cholecystitis Narrative/Plan: Patient doing better today. Will add lactulose given patient's constipation. Tentative plans for cholecystectomy Monday. Current Visit: Yes Status: Acute Code(s): K81.9 - CHOLECYSTITIS, UNSPECIFIED SNOMED Code(s): 00836994
--- NOTE | 2021-04-03 12:06 | P.PN ---
Subjective Patient is feeling well today. Her pain is better. She is complaining of constipation and not having a bowel movement in the last couple of days. Her son at bedside acting as an ballet professor. Objective - Vital Signs Vital signs: Vital Signs Temp 98.6 F 04/03/21 04:52 Pulse 82 04/03/21 09:19 Resp 16 04/03/21 08:00 BP 153/69 04/03/21 09:19 Pulse Ox 97 04/03/21 04:52 Intake & Output 04/02/21 04/03/21 04/03/21 18:59 06:59 18:59 Intake Total 200 100 Balance 200 100 Intake: Intake, IV Titration 200 100 Amount Piperacillin-Tazobactam 3 100 100 .375 gm In Sodium Chloride 0.9% 100 ml @ 25 mls/hr IVPB Q8H [facility] Rx#: [id number] Potassium Chloride 10 meq 100 In Water For Injection 1 100ml.bag @ 100 mls/hr IVPB [facility]CE [facility] Rx#: [id number] Other: Voiding Method Toilet Toilet - Exam General: The patient is awake and alert, in no distress Eye: there is normal conjunctiva bilaterally. Neck: The neck is supple, there is no JVD. Cardiovascular: Normal S1-S2, no S3-S4, no murmurs. Respiratory: Lungs clear to auscultation bilaterally Gastrointestinal: Abdomen is soft, nontender Musculoskeletal: There is no pedal edema. Neurological:. Speech is normal. Skin: Skin is warm and dry - Labs CBC & Chem 7: 04/03/21 07:09 04/03/21 07:09 Labs: Abnormal Lab Results - Last 24 Hours (Table) 04/03/21 04/03/21 Range/Units 07:09 07:09 WBC 14.6 H (3.8-10.6) k/uL Neutrophils # 9.9 H (1.3-7.7) k/uL BUN 19 H (7-17) mg/dL Glucose 112 H (74-99) mg/dL Albumin 3.3 L (3.5-5.0) g/dL Assessment and Plan Assessment: 1. Acute cholecystitis, with abnormal HIDA scan. Scheduled for cholecystectomy on Monday 2. Hypertensive urgency, blood pressure improved. Continue Norvasc 5 mg twice daily 3. Severe back pain, now improved. Lumbar x-ray with no acute finding 4. Severe abdominal/epigastric pain on presentation now resolved. Seen and evaluated by general surgery. Patient underwent EGD during this admission awaiting report. No acute findings per nursing staff verbal report 5. Hypovolemic hyponatremia, improved with IV fluid 6. Constipation, started on lactulose by general surgery I reviewed her medication list and lab work results. CT angiogram of the abdomen and pelvis with no acute findings. Continue symptomatic management. IV Dilaudid and IV Zofran as needed. Patient was started on empiric antibiotic with Zosyn by general surgery day #4. We'll continue to monitor for leukocytosis Plan for OR on Monday
[2021-04-03] MEDS: LACTULOSE 20 GM/30 ML CUP PO SCH ×2 (12:18→20:40)
[2021-04-03] MEDS: ONDANSETRON 4 MG/2 ML VIAL IVP PRN (15:25)
[2021-04-03] MEDS: MONTELUKAST 10 MG TAB PO SCH (20:40)
[2021-04-04] MEDS: HYDROmorphone 0.5 MG/0.5 ML SYRINGE IVP PRN (04:59)
[2021-04-04] MEDS: PIPERACILLIN-TAZOBACTAM 3.375 GM in SODIUM CHLORIDE 0.9% 100 ML IVPB SCH ×3 (04:59→19:38)
[2021-04-04] MEDS: ONDANSETRON 4 MG/2 ML VIAL IVP PRN ×2 (04:59→18:32)
[2021-04-04] MEDS: PANTOPRAZOLE 40 MG TABLET PO SCH (08:42)
[2021-04-04] MEDS: LACTULOSE 20 GM/30 ML CUP PO SCH ×2 (08:42→19:38)
[2021-04-04] MEDS: amLODIPine 5 MG TAB PO SCH ×2 (08:42→19:38)
[2021-04-04] MEDS ORDERED: MAGNESIUM CITRATE 296 ML BOTTLE PO ONE (10:00)
--- NOTE | 2021-04-04 10:03 | P.PN ---
Subjective Progress Note Date: 04/04/21 Principal diagnosis: Cholecystitis Patient doing well today. She still has not had a bowel movement. Denies abdominal pain. Tolerating diet. Objective - Vital Signs Vital signs: Vital Signs Temp 97.8 F 04/04/21 04:26 Pulse 66 04/04/21 04:26 Resp 18 04/04/21 04:26 BP 124/79 04/04/21 04:26 Pulse Ox 98 04/04/21 04:26 Intake & Output 04/03/21 04/04/21 04/04/21 18:59 06:59 18:59 Intake Total 240 Balance 240 Intake: Oral 240 Other: Voiding Method Toilet Toilet # Voids 3 3 - Exam Abdomen: Soft, nondistended, nontender - Labs CBC & Chem 7: 04/03/21 07:09 04/03/21 07:09 Assessment and Plan (1) Cholecystitis Narrative/Plan: Continue diet for now. Add magnesium citrate for ongoing constipation. Patient scheduled for laparoscopic cholecystectomy tomorrow. Current Visit: Yes Status: Acute Code(s): K81.9 - CHOLECYSTITIS, UNSPECIFIED SNOMED Code(s): 09992164
[2021-04-04] MEDS: FLUTICASONE 50MCG/SPRAY NASAL 16GM EA NOSTRIL SCH (10:34)
[2021-04-04] MEDS: LACTATED RINGERS 1,000 ML IV SCH (11:41)
--- NOTE | 2021-04-04 16:58 | P.PN ---
Subjective Patient is feeling well today. No acute events overnight Objective - Vital Signs Vital signs: Vital Signs Temp 98.3 F 04/04/21 12:07 Pulse 70 04/04/21 12:07 Resp 16 04/04/21 12:07 BP 137/69 04/04/21 12:07 Pulse Ox 95 04/04/21 12:07 Intake & Output 04/03/21 04/04/21 04/04/21 18:59 06:59 18:59 Intake Total 240 Balance 240 Intake: Oral 240 Other: Voiding Method Toilet Toilet Toilet # Voids 3 3 - Exam General: The patient is awake and alert, in no distress Eye: there is normal conjunctiva bilaterally. Neck: The neck is supple, there is no JVD. Cardiovascular: Normal S1-S2, no S3-S4, no murmurs. Respiratory: Lungs clear to auscultation bilaterally Gastrointestinal: Abdomen is soft, nontender Musculoskeletal: There is no pedal edema. Neurological:. Speech is normal. Skin: Skin is warm and dry - Labs CBC & Chem 7: 04/03/21 07:09 04/03/21 07:09 Assessment and Plan Assessment: 1. Acute cholecystitis, with abnormal HIDA scan. Scheduled for cholecystectomy on Monday 2. Hypertensive urgency, blood pressure improved. Continue Norvasc 5 mg twice daily 3. Severe back pain, now improved. Lumbar x-ray with no acute finding 4. Severe abdominal/epigastric pain on presentation now resolved. Seen and evaluated by general surgery. Patient underwent EGD during this admission awaiting report. No acute findings per nursing staff verbal report 5. Hypovolemic hyponatremia, improved with IV fluid 6. Constipation, started on lactulose by general surgery I reviewed her medication list and lab work results. CT angiogram of the abdomen and pelvis with no acute findings. Continue symptomatic management. IV Dilaudid and IV Zofran as needed. Patient was started on empiric antibiotic with Zosyn by general surgery day #5. We'll continue to monitor for leukocytosis Plan for OR on Monday
[2021-04-04] MEDS: ACETAMINOPHEN TAB 325 MG TAB PO PRN (18:33)
[2021-04-04] MEDS: MONTELUKAST 10 MG TAB PO SCH (19:37)
[2021-04-05] MEDS: ACETAMINOPHEN TAB 325 MG TAB PO PRN (00:34)
[2021-04-05] MEDS: PIPERACILLIN-TAZOBACTAM 3.375 GM in SODIUM CHLORIDE 0.9% 100 ML IVPB SCH ×3 (04:05→20:20)
[2021-04-05] MEDS: HYDROmorphone 0.5 MG/0.5 ML SYRINGE IVP PRN ×2 (04:27→20:22)
[2021-04-05 06:58] LABS: Basophils % (A) 0 %; Eosinophils # (A) 0.1 k/uL (0-0.7); Eosinophils % (A) 1 %; HCT 43.3 % (34.0-46.0); HGB 14.7 gm/dL (11.4-16.0); Lymphocytes % (A) 21 %; MCH 29.9 pg (25.0-35.0); MCHC 33.9 g/dL (31.0-37.0); MCV 88.1 fL (80.0-100.0); Mean Platelet Volume 8.6; Monocytes # (A) 0.6 k/uL (0-1.0); Monocytes % (A) 4 %; Neutrophils # (A) 10.4 k/uL (1.3-7.7); Neutrophils % (A) 72 %; Platelet Count 242 k/uL (150-450); RBC 4.91 m/uL (3.80-5.40); RDW 12.8 % (11.5-15.5); WBC 14.5 k/uL (3.8-10.6)
[2021-04-05 07:18] LABS: ALT 29 U/L (4-34); AST 35 U/L (14-36); African American GFR (CKD) >90 (>60 ml/min/1.73 sqM); Albumin 3.8 g/dL (3.5-5.0); Alkaline Phosphatase 97 U/L (38-126); Anion Gap 10 mmol/L; Blood Urea Nitrogen 9 mg/dL (7-17); Calcium 9.2 mg/dL (8.4-10.2); Carbon Dioxide 27 mmol/L (22-30); Chloride 101 mmol/L (98-107); Globulin 3.7 g/dL; Glucose 113 mg/dL (74-99); Non-African American GFR(CKD) >90 (>60 ml/min/1.73 sqM); Potassium 3.5 mmol/L (3.5-5.1); Sodium 138 mmol/L (137-145); Total Bilirubin 1.1 mg/dL (0.2-1.3); Total Protein 7.5 g/dL (6.3-8.2)
[2021-04-05] MEDS: amLODIPine 5 MG TAB PO SCH ×2 (10:08→20:22)
[2021-04-05] MEDS: PANTOPRAZOLE 40 MG TABLET PO SCH (10:08)
[2021-04-05] MEDS: LACTULOSE 20 GM/30 ML CUP PO SCH ×2 (10:09→20:22)
[2021-04-05] MEDS: FLUTICASONE 50MCG/SPRAY NASAL 16GM EA NOSTRIL SCH (10:09)
--- NOTE | 2021-04-05 12:44 | P.PN ---
Subjective Patient is feeling well today. No acute events overnight. Her son at bedside acting like an head banquet waitress Objective - Vital Signs Vital signs: Vital Signs Temp 98.1 F 04/04/21 21:00 Pulse 67 04/04/21 21:00 Resp 16 04/04/21 21:00 BP 126/73 04/04/21 21:00 Pulse Ox 95 04/04/21 21:00 Intake & Output 04/04/21 04/05/21 04/05/21 18:59 06:59 18:59 Intake Total 160 770 Balance 160 770 Intake: Intake, IV Titration 420 Amount Lactated Ringers 1,000 ml 220 @ 20 mls/hr IV .Q24H [facility] Rx#:[id number] Piperacillin-Tazobactam 3 200 .375 gm In Sodium Chloride 0.9% 100 ml @ 25 mls/hr IVPB Q8H [facility] Rx#: [id number] Oral 160 350 Other: Voiding Method Toilet Toilet # Voids 2 3 # Bowel Movements 1 - Exam General: The patient is awake and alert, in no distress Eye: there is normal conjunctiva bilaterally. Neck: The neck is supple, there is no JVD. Cardiovascular: Normal S1-S2, no S3-S4, no murmurs. Respiratory: Lungs clear to auscultation bilaterally Gastrointestinal: Abdomen is soft, nontender Musculoskeletal: There is no pedal edema. Neurological:. Speech is normal. Skin: Skin is warm and dry - Labs CBC & Chem 7: 04/05/21 06:16 04/05/21 06:16 Labs: Abnormal Lab Results - Last 24 Hours (Table) 04/05/21 04/05/21 Range/Units 06:16 06:16 WBC 14.5 H (3.8-10.6) k/uL Neutrophils # 10.4 H (1.3-7.7) k/uL Glucose 113 H (74-99) mg/dL Assessment and Plan Assessment: 1. Acute cholecystitis, with abnormal HIDA scan. Scheduled for cholecystectomy today 2. Hypertensive urgency, blood pressure improved. Continue Norvasc 5 mg twice daily 3. Severe back pain, now improved. Lumbar x-ray with no acute finding 4. Severe abdominal/epigastric pain on presentation now resolved. Seen and evaluated by general surgery. Patient underwent EGD during this admission awaiting report. No acute findings per nursing staff verbal report 5. Hypovolemic hyponatremia, improved with IV fluid 6. Constipation, started on lactulose by general surgery I reviewed her medication list and lab work results. CT angiogram of the abdomen and pelvis with no acute findings. Continue symptomatic management. IV Dilaudid and IV Zofran as needed. Patient was started on empiric antibiotic with Zosyn by general surgery day #6. We'll continue to monitor for leukocytosis. May Discontinue antibiotic postoperatively
[2021-04-05] MEDS ORDERED: IV FLUID CONTINUATION 1,000 ML IV ONE (15:52)
[2021-04-05] MEDS: ONDANSETRON 4 MG/2 ML VIAL IVP PRN (15:54)
[2021-04-05] MEDS ORDERED: DEXAMETHASONE SOD PHOSPHATE 4 MG/ML 1 ML VIAL IVP ONE (15:55)
[2021-04-05] MEDS ORDERED: HEPARIN SODIUM,PORCINE/PF 5,000 UNIT/0.5 ML SYRINGE SQ ONE (17:00)
[2021-04-05] MEDS ORDERED: NEOSTIGMINE 1 MG/ML 10 ML VIAL ONE (17:01)
[2021-04-05] MEDS ORDERED: PHENYLEPHRINE-0.9% NACL SYG 1,000 MCG/10 ML SYRINGE ONE (17:01)
[2021-04-05] MEDS ORDERED: GLYCOPYRROLATE 0.2 MG/ML 2 ML VIAL ONE (17:01)
[2021-04-05] MEDS ORDERED: PROPOFOL 10 MG/ML 20 ML VIAL IV ONE (17:01)
[2021-04-05] MEDS ORDERED: HEPARIN SODIUM,PORCINE 5,000 UNIT/ML 1 ML VIAL ONE (17:01)
[2021-04-05] MEDS ORDERED: LIDOCAINE 1% INJ 10MG/ML (20 ML MDV) ONE (17:01)
[2021-04-05] MEDS ORDERED: ROCURONIUM 10 MG/ML (5 ML VIAL) IV ONE (17:01)
[2021-04-05] MEDS ORDERED: fentaNYL (PF) 50 MCG/ML 2 ML AMP ONE (17:01)
[2021-04-05] MEDS ORDERED: SUCCINYLCHOLINE CHLORIDE 100 MG/5 ML SYR IV ONE (17:01)
[2021-04-05] MEDS ORDERED: BUPIVACAINE (PF) 0.25% 30 ML VIAL SQ ONE (17:02)
[2021-04-05] MEDS: LACTATED RINGERS 1,000 ML IV SCH ×2 (17:03→17:06)
--- NOTE | 2021-04-05 18:03 | P.OP ---
Date of Procedure: 04/05/21 Preoperative Diagnosis: Cholecystitis Postoperative Diagnosis: Cholecystitis Procedure(s) Performed: Laparoscopic cholecystectomy Anesthesia: JODEE Surgeon: Jerrell Jaime Estimated Blood Loss (ml): 5 Pathology: other (Gallbladder) Condition: stable Disposition: PACU Description of Procedure: The patient was placed on the operating table. The patient received a general endotracheal tube anesthesia. The patients abdomen was prepped and draped in the usual sterile fashion. Through an infraumbilical stab incision, the fascia of the anterior abdominal wall was grasped with a pair of Kochers and then the Veress needle was placed in the peritoneal cavity. Position of the Veress needle was confirmed with positive drop test. The abdomen was then insufflated. After adequate insufflation, the 10 mm trocar was placed in the peritoneal cavity. Following this the laparoscope was placed in the peritoneal cavity. The patient was placed in the head-up, right side up position and then a 5 mm trocar was placed in the right lateral and right subcostal position under direct visualization. A 8 mm trocar was placed in the epigastric position. The gallbladder was grasped in the fundus and infundibulum. Traction on the gallbladder was placed in the lateral and the cephalad positions. The triangle of Calot was visualized.. The cystic duct was bluntly dissected until the union of the cystic duct and common bile duct was seen. A critical view of safety was achieved. The cystic duct was then divided and sealed with the Harmonic scissors. A PDS Endoloop was then placed throughout the cystic duct stump. The cystic artery divided and sealed with the Harmonic scissors. The gallbladder was then removed from the liver bed using Harmonic scissors. The gallbladder was then extracted through the epigastric port site. Operative field was checked for any bleeding spots and Harmonic scissors was used to coagulate the liver bed. The abdomen was irrigated. The trocars were removed. The skin was closed using interrupted 3-0 Vicryl suture. Dermabond dressing were applied. The patient tolerated the procedure well.
[2021-04-05] MEDS ORDERED: HYDROmorphone 0.5 MG/0.5 ML SYRINGE IVP ONE ×2 (18:10→18:16)
[2021-04-05] MEDS: MONTELUKAST 10 MG TAB PO SCH (20:22)
[2021-04-06] MEDS ORDERED: HYDROmorphone 0.5 MG/0.5 ML SYRINGE IVP PRN ×2 (00:35→00:43)
[2021-04-06] MEDS: ACETAMINOPHEN TAB 325 MG TAB PO PRN (04:44)
[2021-04-06] MEDS: PIPERACILLIN-TAZOBACTAM 3.375 GM in SODIUM CHLORIDE 0.9% 100 ML IVPB SCH ×3 (04:44→20:41)
[2021-04-06] MEDS: PANTOPRAZOLE 40 MG TABLET PO SCH (07:56)
[2021-04-06] MEDS: LACTULOSE 20 GM/30 ML CUP PO SCH ×2 (07:56→18:02)
[2021-04-06] MEDS: amLODIPine 5 MG TAB PO SCH ×2 (07:56→20:41)
[2021-04-06] MEDS: FLUTICASONE 50MCG/SPRAY NASAL 16GM EA NOSTRIL SCH (07:56)
[2021-04-06] MEDS: LACTATED RINGERS 1,000 ML IV SCH (11:32)
[2021-04-06] MEDS ORDERED: HYDROcodone/APAP 5-325MG 1 EACH TAB PO PRN (13:38)
--- NOTE | 2021-04-06 13:42 | P.PN ---
Subjective Progress Note Date: 04/06/21 CHIEF COMPLAINT: Abdominal pain HISTORY OF PRESENT ILLNESS: Patient is status post laparoscopic cholecystectomy. Her pain is controlled. She denies any nausea or vomiting. She is tolerating diet. She has been up and ambulating. She denies any flatus or BM. She is afebrile. PHYSICAL EXAM: VITAL SIGNS: Reviewed. GENERAL: Well-developed in no acute distress. HEENT: No sclera icterus. Extraocular movements grossly intact. Moist buccal mucosa. Head is atraumatic, normocephalic. ABDOMEN: Soft. Nondistended. Incision sites clean dry and intact NEUROLOGIC: Alert and oriented. Cranial nerves II through XII grossly intact. ASSESSMENT: 1. Cholecystitis status post laparoscopic cholecystectomy 2. Gastritis noted on EGD PLAN: -Patient can be discharged from surgical standpoint -Add [place] for pain control -Continue regular low-fat diet -Encourage patient to ambulate Physician Food Counter Attendant note has been reviewed by physician. Signing provider agrees with the documented findings, assessment, and plan of care. Objective - Vital Signs Vital signs: Vital Signs Temp 98.8 F 04/06/21 13:00 Pulse 55 L 04/06/21 13:00 Resp 18 04/06/21 13:00 BP 117/75 04/06/21 13:00 Pulse Ox 97 04/06/21 13:00 Intake & Output 04/05/21 04/06/21 04/06/21 18:59 06:59 18:59 Intake Total 0 1110 Output Total 5 Balance 2044 1110 Intake: IV 1950 Intake, IV Titration 100 400 Amount Lactated Ringers 1,000 ml 200 @ 20 mls/hr IV .Q24H [facility] Rx#:[id number] Piperacillin-Tazobactam 3 100 200 .375 gm In Sodium Chloride 0.9% 100 ml @ 25 mls/hr IVPB Q8H [facility] Rx#: [id number] Oral 710 Output: Estimated Blood Loss 5 Other: Voiding Method Toilet Toilet Toilet # Voids 2 - Labs CBC & Chem 7: 04/05/21 06:16 04/05/21 06:16
[2021-04-06 14:04] VITALS: BMI 32.1
--- NOTE | 2021-04-06 18:03 | P.PN ---
<Jacob Beckett - Last Filed: 04/06/21 17:53> Subjective Progress Note Date: 04/06/21 Hospital course: Patient is a very pleasant 71-year-old female with no known significant past medical history. She presented to the emergency department on 03/30/21 with a chief complaint of severe back pain, abdominal pain, nausea, and vomiting. Patient underwent CT angiogram of the abdomen and pelvis in the emergency department which was negative for acute intra-abdominal process. She was admitted under our services for continued close medical management. X-ray lumbar spine completed revealing mild degenerative disc changes in the lumbar spine negative for acute fracture or misalignment. General surgery was consulted and a HIDA scan was completed. HIDA scan revealing severe hypokinesia of the gallbladder suggestive of acute cholecystitis. Patient underwent surgical cholecystectomy on 04/05/[address] Jaime. Patient limited Nigerian with primary language Bulgarian, per patient's request her son Femi is at bedside translating. Physical exam: Patient seen and fully evaluated at bedside. She spoke limited Nigerian and per her request, her son Femi translated. Patient reports postsurgical pain is controlled. She denies having any further abdominal pain/discomfort but does report feeling of bloating and constipation. To remain on lactulose 20 g twice daily. Labs reviewed showing no significant abnormalities. Vital signs stable. Plans for likely discharge home tomorrow morning, would like to watch patient overnight pending bowel movement. Vital signs reviewed and stable. General: Nontoxic, no distress and appears stated age. Derm: Skin warm and dry, normal coloration for ethnicity. Head: Atraumatic, normocephalic and symmetric. Eyes: EOMs intact, no lid lag, and anicteric sclera Mouth: no lip lesions, mucus membranes moist Cardiovascular: regular rate and rhythm with normal S1S2, no murmur, positive posterior tibial pulses bilaterally, and cap refill < 2 seconds. Lungs: Respirations even, regular, and unlabored on room air. Lungs CTA bilaterally, no rhonchi, no rales, no wheezing, and no accessory muscle usage. Abdominal: soft, nontender to palpation, no guarding, no appreciable organomegaly Ext: ROM intact. No gross muscle atrophy, no edema, no contractures Neuro: Speech clear, face symmetrical and CN II-XII grossly intact with no noted focal neuro deficits Psych: Alert and oriented to person, place, time, and situation. Appropriate and pleasant affect. Assessment and Plan of Care: Acute cholecystitis, status post cholecystectomy postoperative day 1. Abdominal/epigastric pain HIDA scan revealing severe hypokinesia of the gallbladder suggestive of acute cholecystitis. Patient underwent surgical cholecystectomy on 04/05/[address] Jaime. Patient reports abdominal pain controlled but reports she continues with feeling of abdominal bloating and constipation. Patient placed on lactulose 20 g twice daily. We will continue to monitor closely. Constipation Continue lactulose 20 g twice daily We will continue to watch patient overnight pending bowel movement. Acute lower Back pain, improved X-ray lumbar spine revealing mild degenerative disc changes negative for acute fracture Symptomatic care and pain management. Hypovolemic hyponatremia Improved with IV fluid hydration. DVT prophylaxis: SCDs Discussed with: Patient, patient's son, and RN Anticipated discharge date: Possibly tomorrow Anticipated discharge place: Home A total of 45 minutes was spent on the care of this complex patient more than 50% of the time was spent in counseling and care coordination. Objective - Vital Signs Vital signs: Vital Signs Temp 97.9 F 04/06/21 04:32 Pulse 74 04/06/21 07:55 Resp 16 04/06/21 04:32 BP 122/74 04/06/21 07:55 Pulse Ox 93 L 04/06/21 04:32 Intake & Output 04/05/21 04/06/21 04/06/21 18:59 06:59 18:59 Intake Total 0 1110 Output Total 5 Balance 2044 1110 Intake: IV 1950 Intake, IV Titration 100 400 Amount Lactated Ringers 1,000 ml 200 @ 20 mls/hr IV .Q24H [facility] Rx#:[id number] Piperacillin-Tazobactam 3 100 200 .375 gm In Sodium Chloride 0.9% 100 ml @ 25 mls/hr IVPB Q8H [facility] Rx#: [id number] Oral 710 Output: Estimated Blood Loss 5 Other: Voiding Method Toilet Toilet Toilet # Voids 2 - Labs CBC & Chem 7: 04/05/21 06:16 04/05/21 06:16 <Kailash Scott - Last Filed: 04/06/21 18:31> Subjective Patient seen and evaluated by me independently. Patient was also seen by KATIA, the original author of this note. I am in agreement with the subjective, physical exam, and assessment and plan as documented with the addition/changes of my exam and assessment below. Gen: awake, alert HEENT: normocephalic, atraumatic, good hearing acuity, moist mucous membranes Resp: good air exchange, breathing comfortably with no accessory muscle use CVS: good distal perfusion x 4, GI: soft, NTTP, ND : no SPT, no CVAT, frazier catheter not present MSK: no pitting edema, no clubbing Neuro: non-focal, moving all extremities Psych: cooperative, euthymic mood Plan: Doing well status post cholecystectomy Plan for aggressive bowel regimen overnight Discharge tomorrow after passing stool Follow-up with surgery in 2 weeks Pain control Objective - Vital Signs Vital signs: Vital Signs Temp 98.8 F 04/06/21 13:00 Pulse 55 L 04/06/21 13:00 Resp 18 04/06/21 13:00 BP 117/75 04/06/21 13:00 Pulse Ox 97 04/06/21 13:00 Intake & Output 04/05/21 04/06/21 04/06/21 18:59 06:59 18:59 Intake Total 2049 1110 180 Output Total 5 Balance 2044 1110 180 Weight 77.111 kg Intake: IV 1950 Intake, IV Titration 100 400 180 Amount Lactated Ringers 1,000 ml 200 80 @ 20 mls/hr IV .Q24H [facility] Rx#:[id number] Piperacillin-Tazobactam 3 100 200 100 .375 gm In Sodium Chloride 0.9% 100 ml @ 25 mls/hr IVPB Q8H [facility] Rx#: [id number] Oral 710 Output: Estimated Blood Loss 5 Other: Voiding Method Toilet Toilet Toilet # Voids 2 - Labs CBC & Chem 7: 04/05/21 06:16 04/05/21 06:16
[2021-04-06] MEDS: MONTELUKAST 10 MG TAB PO SCH (20:41)
[2021-04-07] MEDS: PIPERACILLIN-TAZOBACTAM 3.375 GM in SODIUM CHLORIDE 0.9% 100 ML IVPB SCH (03:51)
[2021-04-07 06:29] VITALS: PULSE 75; RESP 20; TEMP 97.8
[2021-04-07] MEDS: LACTULOSE 20 GM/30 ML CUP PO SCH (07:51)
[2021-04-07] MEDS: amLODIPine 5 MG TAB PO SCH (07:51)
[2021-04-07] MEDS: PANTOPRAZOLE 40 MG TABLET PO SCH (07:51)
[2021-04-07] MEDS: FLUTICASONE 50MCG/SPRAY NASAL 16GM EA NOSTRIL SCH (07:52)
[2021-04-07 07:58] VITALS: BP 124/74
--- NOTE | 2021-04-07 09:56 | P.DS ---
<Jacob Beckett - Last Filed: 04/07/21 09:46> Providers Expected date of discharge: 04/07/21 Hospital Course: Discharge Diagnosis: Acute cholecystitis, status post cholecystectomy postoperative day 2. Abdominal/epigastric pain, resolved Newly diagnosed hypertension Hypertensive urgency with blood pressure 204/113 Constipation, resolved Acute lower Back pain, improved Hypovolemic hyponatremia, Improved after IV fluid hydration. Hospital Course: Patient is a very pleasant 71-year-old female with no known significant past medical history. She presented to the emergency department on 03/30/21 with a c sdef complaint of severe back pain, abdominal pain, nausea, and vomiting. Patient underwent CT angiogram of the abdomen and pelvis in the emergency department which was negative for acute intra-abdominal process. She was admitted under our services for continued close medical management. X-ray lumbar spine completed revealing mild degenerative disc changes in the lumbar spine negative for acute fracture or misalignment. Patient did have persistent hypertension as high as BP of 204/113. She was started on Norvasc 5 mg twice daily and has since had well-controlled blood pressure readings. General surgery was consulted and a HIDA scan was completed. HIDA scan revealing severe hypokinesia of the gallbladder suggestive of acute cholecystitis. Patient underwent surgical cholecystectomy on 04/05/[address] Jaime. During postoperative. Patient had an episode in which she complained of abdominal bloating and constipation and was held an additional night to ensure that she was able to have a postsurgical bowel movement. Constipation results and patient's bowel function back to her reported normal. Patient free from any abdominal pain or bloating at this time and continues to deny any nausea, vomiting, chest pain, palpitations, or shortness of breath. As stated above, patient was started on amlodipine 5 mg twice daily for control of her newly diagnosed hypertension and being discharged home with prescriptions for amlodipine, docusate, MiraLAX, and 3 day supply of [place] for postsurgical pain. Patient is medically stable for discharge home with her family at this time. Patient and her family were instructed that she will need to follow up outpatient with her PCP as well as general surgery's office next week. All questions answered at this time. Physical exam: Patient seen and fully evaluated at bedside. She speaks limited [place] and per her request, her is at bedside translating. Patient reports postsurgi biju pain remains controlled and abdominal bloating has also resolved as she has had two bowel movements this morning. Patient's vitals stable and she is medically stable for discharge home with her family at this time. Vital signs reviewed and stable. General: Nontoxic, no distress and appears stated age. Derm: Skin warm and dry, normal coloration for ethnicity. Head: Atraumatic, normocephalic and symmetric. Eyes: EOMs intact, no lid lag, and anicteric sclera Mouth: no lip lesions, mucus membranes moist Cardiovascular: regular rate and rhythm with normal S1S2, no murmur, positive posterior tibial pulses bilaterally, and cap refill < 2 seconds. Lungs: Respirations even, regular, and unlabored on room air. Lungs CTA bilaterally, no rhonchi, no rales, no wheezing, and no accessory muscle usage. Abdominal: soft, nontender to palpation, no guarding, no appreciable organomegaly. Laparoscopic incisions to abdomen well approximated, no redness, swelling, or drainage. Ext: ROM intact. No gross muscle atrophy, no edema, no contractures Neuro: Speech clear, face symmetrical and CN II-XII grossly intact with no noted focal neuro deficits Psych: Alert and oriented to person, place, time, and situation. Appropriate and pleasant affect. A total of 45 minutes of time were spent preparing this complex discharge summary. Assessment: I reviewed the documentation as provided by the KATIA above, who is the original author of this note. I agree with the documented assessment and plan, with the following changes: None Patient Condition at Discharge: Stable Plan - Discharge Summary Discharge Rx Participant: No New Discharge Prescriptions: New HYDROcodone/APAP 5-325MG [[place] 5-325] 1 tab PO Q6HR PRN 3 Days #12 tab PRN Reason: Pain amLODIPine [Norvasc] 5 mg PO BID 30 Days #60 tab Docusate [Colace] 100 mg PO BID #30 cap polyethylene glycoL 3350 [Miralax] 17 gm PO DAILY 30 Days #30 packet Continue methylPREDNISolone [Medrol Dose Pack] See Taper PO DAILY Montelukast [Singulair] 10 mg PO HS Fluticasone Nasal [place] [Flonase Nasal [place]] 1 spray EA NOSTRIL DAILY Ondansetron [Zofran] 4 mg PO Q12HR PRN PRN Reason: Nausea Famotidine [Pepcid] 20 mg PO DAILY Discharge Medication List Famotidine [Pepcid] 20 mg PO DAILY 03/30/21 [History] Fluticasone Nasal [place] [Flonase Nasal [place]] 1 spray EA NOSTRIL DAILY 03/30/21 [History] Montelukast [Singulair] 10 mg PO HS 03/30/21 [History] Ondansetron [Zofran] 4 mg PO Q12HR PRN 03/30/21 [History] methylPREDNISolone [Medrol Dose Pack] See Taper PO DAILY 03/30/21 [History] Docusate [Colace] 100 mg PO BID #30 cap 04/06/21 [Rx] HYDROcodone/APAP 5-325MG [[place] 5-325] 1 tab PO Q6HR PRN 3 Days #12 tab 04/06/21 [Rx] amLODIPine [Norvasc] 5 mg PO BID 30 Days #60 tab 04/06/21 [Rx] polyethylene glycoL 3350 [Miralax] 17 gm PO DAILY 30 Days #30 packet 04/07/21 [Rx] Follow up Appointment(s)/Referral(s): Eleazar Huynh MD [Primary Care Provider] - 04/09/21 11:30 am Jerrell Jaime MD [STAFF PHYSICIAN] - 04/15/21 3:20 pm Patient Instructions/Handouts: *Surgery [facility] - Laparoscopic Cholecystectomy Discharge Instructions, Heart Healthy Diet (DC), Hypertension (DC) Activity/Diet/Wound Care/Special Instructions: Activity: As tolerated, remember to rest and take breaks as needed Diet: Heart healthy diet Wound Care: Follow-up with surgery, outpatient appointment with Dr. Jaime. Keep surgical incisions clean and dry. Monitor for any signs of infection including redness, swelling, or drainage. Special Instructions: Remember to take medications exactly as prescribed without missing any doses. Please keep all follow-up appointments. Thank you for allowing us to participate in your care, it was truly a pleasure to have you for our patient!! Discharge Disposition: HOME SELF-CARE <Kailash Scott - Last Filed: 04/07/21 18:34> Providers Date of admission: 03/30/21 14:40 Attending physician: Leslie Pimentel Consults: 03/30/21 14:39 Consult Physician Urgent Consulting Provider: Jerrell Jaime Consult Reason/Comments: Abdominal pain Do you want consulting provider notified?: Yes Primary care physician: Eleazar Huynh MD
--- NOTE | 2021-04-13 11:15 | P.OP ---
Date of Procedure: 04/01/21 Preoperative Diagnosis: Epigastric pain Postoperative Diagnosis: Mild antral gastritis Procedure(s) Performed: EGD Anesthesia: MAC Surgeon: Jerrell Jaime Pathology: other (Antrum) Condition: stable Disposition: PACU Description of Procedure: The patient's placed on the endoscopy table lateral position. IV sedation. The gastro-/oropharynx passed in the esophagus and stomach. Scope was then placed through the pylorus. The first and second portion duodenum appeared normal. Scope summer back the antrum this was mildly inflamed. A biopsies performed. Scope was retroflexed and the remainder of the stomach appeared normal. The GE junction was at 40 cm with the distal esophagus appeared normal. Proximal esophagus normal. Scope was withdrawn for patient.
== END 2021-04-07 11:46 | disposition home or self-care (01) | DRG 418 ==
LOC: EC 11:26 → 5NMEDONC 14:40 → 1SOBS 18:18 → 5NMEDONC 04-01 17:44
PROVIDERS: ADMIT Internal Medicine; ATTEND Internal Medicine
PROC: 0DB78ZX Excision of Stomach, Pylorus, Via Natural or Artificial Opening Endoscopic, Diagnostic (ICD-10-PCS; 2021-04-01)
PROC: 0FT44ZZ Resection of Gallbladder, Percutaneous Endoscopic Approach (ICD-10-PCS; principal; 2021-04-05 15:15)
DX: K81.2 Acute cholecystitis with chronic cholecystitis (principal); E87.1 Hypo-osmolality and hyponatremia; K57.92 Diverticulitis of intestine, part unspecified, without perforation or abscess without bleeding; I16.0 Hypertensive urgency; K82.8 Other specified diseases of gallbladder; M54.9 Dorsalgia, unspecified; E86.1 Hypovolemia; R10.13 Epigastric pain; Z20.822 Contact with and (suspected) exposure to COVID-19; K29.70 Gastritis, unspecified, without bleeding; I10 Essential (primary) hypertension; K59.00 Constipation, unspecified; M51.36 Other intervertebral disc degeneration, lumbar region; Z79.899 Other long term (current) drug therapy
CPT/HCPCS: 36415; 43239; 71046; 72100; 74174; 78227; 80048; 80053; 81001; 82150; 83605; 83690; 83735; 84484; 85025; 85610; 85730; 87635; 88304; 88305; 93005; 96374; 96375; 99285